=== PATIENT | female | born 1985 | race Caucasian/White ===

== ENCOUNTER 2017-02-23 02:20 | Emergency (ER) | payer MEDICAID ==
[~2017-02-23] VITALS: Ht 160 cm; Wt 88.0 kg
[2017-02-23 03:14] LABS: PLATELET COUNT 314 x10^3mcL (130-400)
[2017-02-23 03:19] LABS: BASOPHIL % 5.7 % (0-2)
[2017-02-23 03:27] LABS: CHLORIDE SERUM 105 mmol/L (98-107); CREATININE SERUM 0.7 mg/dL (0.6-1.0); GFR1 > 60 mL/min; GLUCOSE SERUM 94 mg/dL (74-106); POTASSIUM SERUM 3.4 mmol/L (3.5-5.1); SODIUM SERUM 141 mmol/L (136-145)
[2017-02-23 03:32] LABS: ALBUMIN 3.8 g/dL (3.4-5.0); ALKALINE PHOSPHATASE 93 U/L (46-116); ALT/SGPT 33 U/L (14-59); AST/SGOT 21 U/L (15-37); BILIRUBIN TOTAL 0.24 mg/dL (0.20-1.00); TOTAL PROTEIN, SERUM 7.3 g/dL (6.4-8.2)
[2017-02-23 04:45] VITALS: BP 131/68
== END 2017-02-23 04:45 | disposition home or self-care (01) ==
LOC: ED 02:20
PROVIDERS: Emergency Medicine
DX: R51 Headache (principal); R06.02 Shortness of breath; I10 Essential (primary) hypertension; Z79.899 Other long term (current) drug therapy; Z88.5 Allergy status to narcotic agent; Z88.6 Allergy status to analgesic agent
CPT/HCPCS: 36415; Q0092

== ENCOUNTER 2018-05-23 01:23 | Emergency (ER) | payer MEDICAID ==
[~2018-05-23] VITALS: Ht 162.6 cm; Wt 94.3 kg
[2018-05-23 02:33] LABS: microscopic required? NO
[2018-05-23 02:47] LABS: UA SPECIFIC GRAVITY <=1.005 (1.005-1.035); urine erythrocyte NEGATIVE (NEGATIVE)
[2018-05-23 02:55] LABS: AMPHETAMINE QUAL UR NONE DETECTED (See below)
[2018-05-23 03:06] LABS: BASOPHIL % 0.4 % (0-2); PLATELET COUNT 340 x10^3mcL (130-400); RED CELL DISTRIBUTION WIDTH 13.8 % (11.5-14.5)
[2018-05-23 03:58] LABS: CARBON DIOXIDE 24.7 mmol/L (21-32); CHLORIDE SERUM 105 mmol/L (98-107); CREATININE SERUM 0.7 mg/dL (0.6-1.0); GFR1 > 60 mL/min; GLUCOSE SERUM 96 mg/dL (74-106); POTASSIUM SERUM 3.8 mmol/L (3.5-5.1); SODIUM SERUM 141 mmol/L (136-145)
[2018-05-23 04:03] LABS: ALKALINE PHOSPHATASE 103 U/L (46-116); ALT/SGPT 43 U/L (14-59); AST/SGOT 32 U/L (15-37); BILIRUBIN TOTAL 0.56 mg/dL (0.20-1.00); TOTAL PROTEIN, SERUM 7.8 g/dL (6.4-8.2)
[2018-05-23 06:38] VITALS: BP 129/76
== END 2018-05-23 06:38 | disposition home or self-care (01) ==
LOC: ED 01:23
PROVIDERS: Emergency Medicine
DX: R07.89 Other chest pain (principal); J45.909 Unspecified asthma, uncomplicated; M79.7 Fibromyalgia
CPT/HCPCS: 36415; 83880

== ENCOUNTER 2018-12-27 15:14 | Emergency (ER) | payer SELFPAY, MEDICAID | END 2018-12-27 16:04 | disposition home or self-care (01) | LOC: ED 15:14 ==